=== PATIENT | female | born 1975 | race American Indian/Alaskan Native ===

== ENCOUNTER 2023-05-23 13:35 | Emergency (ER) | payer MEDICAID ==
[~2023-05-23] VITALS: Ht 170.2 cm; Wt 118.0 kg
[2023-05-23 13:38] VITALS: BP 131/76; PULSE 98; RESP 12; TEMP 97.5; O2SAT 98
[2023-05-23] MEDS ORDERED: NALOXONE HCL 1 MG/ML 2ML VIAL IV ONE (14:15)
== END 2023-05-23 15:52 | disposition left against medical advice (07) ==
LOC: ER 13:44
DX: T40.2X1A Poisoning by other opioids, accidental (unintentional), initial encounter (principal); J45.909 Unspecified asthma, uncomplicated; Y92.89 Other specified places as the place of occurrence of the external cause
CPT/HCPCS: 99283

== ENCOUNTER 2024-07-15 08:05 | Emergency (ER) | payer MEDICAID ==
[~2024-07-15] VITALS: Ht 160 cm; Wt 104.3 kg
[2024-07-15 08:06] VITALS: BP 152/95; PULSE 102; RESP 16; TEMP 98.7; O2SAT 98; O2SAT 99
[2024-07-15] MEDS ORDERED: CEPH500C2 MT (08:46)
== END 2024-07-15 08:49 | disposition home or self-care (01) ==
LOC: ER 08:12
DX: L03.312 Cellulitis of back [any part except buttock and flank] (principal); J45.909 Unspecified asthma, uncomplicated
CPT/HCPCS: 99283

== ENCOUNTER 2024-07-18 03:22 | Emergency (ER) | payer MEDICAID ==
[~2024-07-18] VITALS: Ht 167.6 cm; Wt 108.0 kg
[~2024-07-18 03:22] MED LIST: CEPH500C2 MT
[2024-07-18 03:26] VITALS: TEMP 98; O2SAT 99
[2024-07-18] MEDS ORDERED: SULF1TAB48 MT (03:43)
[2024-07-18] MEDS ORDERED: CEPH500C2 MT (03:43)
[2024-07-18 03:46] VITALS: BP 132/57; PULSE 102; RESP 18
[2024-07-18] MEDS: SULFAMETHOXAZOLE/TRIMETHOPRIM 800/160MG TABLET PO ONE (03:46)
[2024-07-18] MEDS: HYDROCODONE/ACETAMINOPHEN 10/325MG TABLET PO ONE (03:46)
== END 2024-07-18 03:52 | disposition home or self-care (01) ==
LOC: ER 03:22
DX: L03.116 Cellulitis of left lower limb (principal); J45.909 Unspecified asthma, uncomplicated
CPT/HCPCS: 99283